=== PATIENT | female | born 1940 | race Caucasian/White ===

== ENCOUNTER 2018-12-21 10:52 | Inpatient (IN) | payer MEDICARE ==
[2018-12-21] MEDS ORDERED: NITROGLYCERIN OINT 1 INCH/GM PACKET TOPICAL STA (11:13)
[2018-12-21] MEDS ORDERED: ASPIRIN 81 MG PO STA ×2 (11:13→11:55)
[2018-12-21] MEDS ORDERED: NITROGLYCERIN-D5W PMX 50 MG in DEXTROSE/WATER 1 250ML.BAG IV ONE (11:54)
[2018-12-21] MEDS ORDERED: NITROGLYCERIN SL TABS 0.4 MG TAB SUBLINGUAL STA (11:54)
--- NOTE | 2018-12-21 11:59 | ED ---
Chest Pain HPI - General Chief Complaint: Chest Pain Stated Complaint: Chest pain Time Seen by Provider: 12/21/18 11:00 Source: patient Mode of arrival: ambulatory Limitations: no limitations - History of Present Illness Initial Comments: Patient is a 78 year old female with past medical history of hypertension who presents to emergency room with reported chest pain. Is located over the left side of her chest with radiation straight through to her back. She did take 2 baby aspirins. It started while she was vacuuming this morning at 8:30 am. She r otated her body and the pain started. Denies any associated shortness of breath or diaphoresis. Does admit to slight numbness in her left upper extremity. Denies any fevers, chills, cough or hemoptysis. No weakness in her extremities. No history of coronary disease. Reports that she has had several EKGs by her primary care physician which have all been normal. She denies ever having stress testing. She recently moved to [place] from [place]. She denies any nausea or vomiting. No history of DVT or PEs. No lower extremity swelling. Denies any unilateral calf pain. No recent upper respiratory infections. No recent illnesses. No other alleviating, precipitating or modifying factors - Related Data Home Medications Medication Instructions Recorded Confirmed Aspirin EC [Ecotrin Low Dose] 81 mg PO DAILY 12/21/18 12/21/18 Vitamin C/Biotin [Hair, Skin and 1 tab PO DAILY 12/21/18 12/21/18 Nails] Previous Rx's Medication Instructions Recorded Apixaban [Eliquis] 2.5 mg PO BID #60 tablet 12/23/18 Atorvastatin [Lipitor] 80 mg PO DAILY #30 tab 12/23/18 Clopidogrel [Plavix] 75 mg PO DAILY #30 tab 12/23/18 Losartan [Cozaar] 50 mg PO DAILY #30 tab 12/23/18 Pantoprazole [Protonix] 40 mg PO DAILY #30 tablet. 12/23/18 Furosemide [Lasix] 20 mg PO DAILY #30 tab 12/25/18 Metoprolol Tartrate [Lopressor] 75 mg PO TID tab 12/25/18 Potassium Chloride ER [K-Dur 20] 20 meq PO DAILY #30 tab.er.prt 12/25/18 Allergies Allergy/AdvReac Type Severity Reaction Status Date / Time Penicillins Allergy Rash/Hives Verified 12/21/18 11:27 Sulfa (Sulfonamide Allergy Anaphylaxis Verified 12/21/18 11:27 Antibiotics) Review of Systems ROS Statement: Those systems with pertinent positive or pertinent negative responses have been documented in the HPI. ROS Other: All systems not noted in ROS Statement are negative. EKG Findings - EKG Comments: EKG Findings:: EKG performed at 1134 demonstrates a ventricular rate of 104. QRS 70. QTC 441. There are PVCs. There is acute ST segment elevation in the inferior leads2, 3, aVF. There is also ST elevation in leads V2 through V6. EKG at 1135 demonstrates a rate of 107. QRS 68. QTC 376. There is acute ST segment elevation again in the inferior leads and anterior lateral leads. EKG at [address] segment elevation in leads 2, 3 and aVF, V2 through V6. A posterior EKG is performed at 1239. It shows an atrial fibrillation with a response of 112. QRS 66. QTC 436. There are acute ST elevations in II, III, aVF, V1 through V3. The posterior leads of V7-V9 show depression Past Medical History Past Medical History: Cancer, Hypertension History of Any Multi-Drug Resistant Organisms: None Reported Past Surgical History: Hysterectomy Past Psychological History: No Psychological Hx Reported Smoking Status: Never smoker Past Alcohol Use History: None Reported Past Drug Use History: None Reported - Past Family History family Additional Family Medical History / Comment(s): No family history of myocardial infarction, cerebrovascular accident, or congestive heart failure General Exam Limitations: no limitations General appearance: alert, in no apparent distress Head exam: Present: atraumatic, normocephalic, normal inspection Eye exam: Present: normal appearance, PERRL, EOMI. Absent: scleral icterus, conjunctival injection, periorbital swelling ENT exam: Present: normal exam, mucous membranes moist Neck exam: Present: normal inspection. Absent: tenderness, meningismus, lymphadenopathy Respiratory exam: Present: normal lung sounds bilaterally. Absent: respiratory distress, wheezes, rales, rhonchi, stridor Cardiovascular Exam: Present: normal rhythm, tachycardia, normal heart sounds. Absent: systolic murmur, diastolic murmur, rubs, gallop, clicks GI/Abdominal exam: Present: soft, normal bowel sounds. Absent: distended, tenderness, guarding, rebound, rigid Extremities exam: Present: normal inspection, full ROM, normal capillary refill. Absent: tenderness, pedal edema, joint swelling, calf tenderness Back exam: Present: normal inspection Neurological exam: Present: alert, oriented X3, CN II-XII intact Psychiatric exam: Present: normal affect, normal mood Skin exam: Present: warm, dry, intact, normal color. Absent: rash Course Vital Signs 12/21/18 12/21/18 12/21/18 10:55 11:34 11:45 Temperature 97.7 F Pulse Rate 117 H Respiratory 20 Rate Blood Pressure 161/111 161/113 O2 Sat by Pulse 98 97 97 Oximetry 12/21/18 12/21/18 12/21/18 12:00 12:15 12:30 Temperature Pulse Rate 114 H 114 H Respiratory 16 16 Rate Blood Pressure 161/113 161/113 146/103 O2 Sat by Pulse 97 97 Oximetry 12/21/18 12/21/18 12:44 12:45 Temperature Pulse Rate 110 H 114 H Respiratory 21 Rate Blood Pressure 110/79 150/96 O2 Sat by Pulse 98 99 Oximetry Chest Pain MDM - MDM Upon arrival the patient was placed into room 4. A thorough history and physical exam was performed. Patient was hooked up to continuous pulse ox and cardiac monitoring. Patient did have peripheral IV established. I did order laboratory studies, an EKG and a chest x-ray. I also ordered 2, 81 mg aspirins and nitro paste. The patient is noted to be hypertensive at this time. EKG was performed at [address] elevations in the inferior and anterior lateral leads. There was no reciprocal changes. Because of the concerning clinical picture and EKG, I did call and discuss the case with Dr. Perez at 11:39. As the patient is complaining of intrascapular back pain with hypertension, he did recommend that the patient be sent for a CT to rule out dissection. I then change the patient's over to a sublingual nitro and ordered a nitro drip. The patient was informed of being immediately sent over for imaging without laboratory studies. She reports no history of kidney disease. The patient did consent to the imaging. Imaging was performed and the patient was started on the nitro drip upon return. I did look at the images myself and see no gross dissection. Because of this I did state that the patient should receive 4, chewable aspirins and a heparin bolus. I called and discussed the case with Dr. Perez once again at [address] was negative from my perspective. He does evaluate the EKG and states that he will cath the patient. I discussed this with the patient and she was agreeable to the procedure. She was transported to the [facility] in stable condition. I reviewed the patient's CT results which were dictated at 1252 which confirmed that the patient had no dissection. I also reviewed the laboratory studies which were resulted after she had gone upstairs. Laboratory studies demonstrated a hemoglobin of 13.5, platelets of 172. D-dimer was 0.38. Troponin was elevated at 0.126. Disposition Clinical Impression: Chest pain, STEMI (ST elevation myocardial infarction) Disposition: ADMITTED IP TO THIS HOSP Condition: Stable Is patient prescribed a controlled substance at d/c from ED?: No
[2018-12-21] MEDS ORDERED: HEPARIN SODIUM,PORCINE 5,000 UNIT/ML 1 ML VIAL IV STA (12:42)
[2018-12-21 12:50] LABS: Basophils % (A) 0 %; Eosinophils % (A) 0 %; HCT 42.2 % (34.0-46.0); HGB 13.5 gm/dL (11.4-16.0); Lymphocytes # (A) 0.6 k/uL (1.0-4.8); Lymphocytes % (A) 8 %; MCH 30.1 pg (25.0-35.0); MCHC 32.1 g/dL (31.0-37.0); MCV 93.7 fL (80.0-100.0); Monocytes # (A) 0.3 k/uL (0-1.0); Monocytes % (A) 3 %; Neutrophils # (A) 6.7 k/uL (1.3-7.7); Neutrophils % (A) 88 %; Platelet Count 172 k/uL (150-450); RDW 14.4 % (11.5-15.5); WBC 7.7 k/uL (3.8-10.6)
--- NOTE | 2018-12-21 12:52 | CT ---
EXAMINATION TYPE: CT angio thor/abd pel aorta DATE OF EXAM: 12/21/2018 COMPARISON: None HISTORY: 78-year-old female Chest pain TECHNIQUE: Contiguous axial scanning of the chest, abdomen, and pelvis performed without and with IV Contrast, patient injected with 100 mL of Isovue 370. Coronal/sagittal MIP reconstructions performed. Reconstructions generated on a dedicated independent workstation. CT DLP: 1120 mGycm Automated exposure control for dose reduction was used. FINDINGS: CHEST: Heart borderline enlarged without pericardial effusion. Coronary vessel calcifications are present. Ectatic ascending aorta 3.5 cm. Conventional arch vessel branching anatomy. Upper descending thoracic aorta normal caliber. Scattered mild prostatic calcifications without. Initial noncontrast images show no evidence for acute intramural hematoma. No evidence for aortic dissection. There is some focal narrowing at the level of the celiac axis origin and mild poststenotic dilatation up to 9 mm. Duplex left renal arteries. Mild atherosclerotic calcifications infrarenal abdominal aorta without aneurysm. No thoracic lymphadenopathy by CT size criteria. There is a large hiatal hernia involving the entire stomach which is located in the left base. There is organoaxial positioning of the stomach and a trace left pleural effusion. Hernia also involves the nonobstructed splenic flexure and begins to involve the body of the pancreas. Volume loss of the left base with focal patchy opacity, likely atelectasis. Density right midlung pulmonary nodule measures 1 cm. Precautionary follow-up recommended. The presen ce of fat density raises the possibility of a benign pulmonary hamartoma. ABDOMEN: Gallbladder measures 3.7 cm wide. Layering calculi in the gallbladder. Arterial phase imaging of the liver, adrenal glands, left kidney, spleen, and pancreas show no gross abnormal body. 1.2 cm hypodense lesion exophytically laterally from the right kidney too small for accurate CT junito cterization, probable cyst. No dilated small bowel, free fluid, or free air. No mesenteric or retroperitoneal lymphadenopathy. Normal appendix. Scattered mild stool. Mild sigmoid diverticulosis. No pericolonic inflammatory guo ge. Pelvis: Bladder urine distended. Uterus surgically absent. Neither ovary clearly visualized. Bones: Osteopenia. Facet arthropathy lower lumbar spine. Advanced degenerative disc disease L2-L3. IMPRESSION: 1. ECTATIC ASCENDING AORTA 3.5 CM. NO EVIDENCE FOR AORTIC ANEURYSM, ACUTE INTRAMURAL HEMATOMA, OR AOR TIC DISSECTION. 2. LARGE HIATAL HERNIA INVOLVING THE ENTIRE STOMACH WHICH FILLS THE LEFT BASE. HERNIA ALSO INVOLVES T HE NONOBSTRUCTED SPLENIC FLEXURE OF THE COLON. 3. ASSOCIATED VOLUME LOSS AND ATELECTASIS AT THE LEFT BASE. 4. A 1 CM RIGHT MIDLUNG PULMONARY NODULE MAY REPRESENT A BENIGN PULMONARY HAMARTOMA. SIX-MONTH FOLLOW -UP CT RECOMMENDED TO REASSESS. 5. CHOLELITHIASIS. MILD SIGMOID DIVERTICULOSIS.
[2018-12-21 12:56] LABS: ALT 69 U/L (9-52); AST 54 U/L (14-36); African American GFR (CKD) >90 (>60 ml/min/1.73 sqM); Albumin 3.3 g/dL (3.5-5.0); Alkaline Phosphatase 93 U/L (38-126); Anion Gap 10 mmol/L; Blood Urea Nitrogen 14 mg/dL (7-17); Calcium 8.4 mg/dL (8.4-10.2); Carbon Dioxide 24 mmol/L (22-30); Chloride 101 mmol/L (98-107); Glucose 133 mg/dL (74-99); Magnesium 1.9 mg/dL (1.6-2.3); Non-African American GFR(CKD) 80 (>60 ml/min/1.73 sqM); Potassium 3.4 mmol/L (3.5-5.1); Sodium 135 mmol/L (137-145); Total Bilirubin 0.9 mg/dL (0.2-1.3); Total Protein 5.6 g/dL (6.3-8.2)
[2018-12-21 12:57] LABS: D-Dimer 0.38 mg/L FEU (<0.60); INR 1.1 (<1.2); Partial Thromboplastin Time 22.4 sec (22.0-30.0); Prothrombin Time 11.7 sec (9.0-12.0)
[2018-12-21] MEDS ORDERED: NALOXONE 0.4 MG/ML 1 ML VIAL IV PRN (13:05)
[2018-12-21] MEDS ORDERED: LIDOCAINE 1% INJ 10MG/ML (20 ML MDV) SQ ONE (13:15)
[2018-12-21] MEDS ORDERED: MIDAZOLAM PF (FBP) 2 MG/2 ML VIAL IV ONE (13:20)
[2018-12-21] MEDS: HYDROmorphone 1 MG/ML 1 ML SYRINGE IVP ONE ×2 (13:20→13:50)
[2018-12-21] MEDS ORDERED: BIVALIRUDIN BOLUS 250 MG/50 ML IV ONE (13:25)
[2018-12-21] MEDS ORDERED: BIVALIRUDIN 250 MG in SODIUM CHLORIDE 0.9% 40 ML IV ONE (13:25)
[2018-12-21] MEDS ORDERED: IV FLUID CONTINUATION 900 ML IV ONE (13:26)
[2018-12-21] MEDS ORDERED: IOPAMIDOL-370 125ML BTL INJ ONE (14:01)
[2018-12-21] MEDS: NITROGLYCERIN 1000MCG/10ML SYRINGE INTRACORON ONE ×2 (14:07→14:21)
[2018-12-21] MEDS ORDERED: CLOPIDOGREL 75 MG TAB PO ONE (14:14)
[2018-12-21] MEDS ORDERED: niCARdipine Syringe (1,000 mcg/10 mL) INTRACORON ONE (14:23)
[2018-12-21 16:42] LABS: Glucose,Whole Blood 138 mg/dL (75-99)
[2018-12-21 16:45] VITALS: BMI 27.1
[2018-12-21] MEDS ORDERED: METOPROLOL TARTRATE 50 MG TAB PO STA (16:56)
[2018-12-21] MEDS ORDERED: ONDANSETRON 4 MG/2 ML VIAL IVP PRN (16:57)
[2018-12-21] MEDS: POTASSIUM CHLORIDE ER 20 MEQ TAB.ER PO SCH (17:28)
[2018-12-21] MEDS: SODIUM CHLORIDE 0.9% 1,000 ML IV SCH (18:07)
[2018-12-21] MEDS ORDERED: ALPRAZolam 0.5 MG TAB PO PRN (18:30)
[2018-12-21] MEDS ORDERED: HYDROcodone/APAP 5-325MG 1 EACH TAB PO PRN (18:30)
[2018-12-21] MEDS ORDERED: ACETAMINOPHEN TAB 325 MG TAB PO PRN (18:30)
--- NOTE | 2018-12-21 18:34 | P.HPIM ---
History of Present Illness H&P Date: 12/21/18 Chief Complaint: chest pain Patient is a 78 yo female with a past medical history of HTN, endometrial cancer in 2008, irregular heart beat, and anxiety who presented to the ED via private vehicle for chest. In the emergency depart she was found to have ST segment elevation on multiple leads. She was also noted to have A fib on 1 ekg. Her troponin was mildly elevated. She went from the ED to the [facility] where 3 stents were placed to the LAD. She was given ASA, plavix, and lipitor. She was admitted to the ICU. Patient seen and examined in the ICU she complains of nausea after her cath. She has also had several twinges of chest pain, but nothing else significant. She reports that this morning she was vacuuming and turned sideways. She then started having chest pain that went through to her back. This was associated with some diaphoresis (which was not unusual for her), and left arm numbness. She denies any shortness of breath, associated nausea, lightheaded or dizziness, or presyncope. She states it lasted 30-45 minutes at home and they decided to drive to the emergency department took approximately 1 hour. She denies any recent cough, cold, fever, flu, nausea, vomiting, or diarrhea. She reports that she saw her PCP in [place] recently and had her atenolol increased was started on Benzapril 5 mg twice daily. She has no history of chest pain in the past. She has no family history of myocardial infarction or history of vascular accident. She has never seen a varnish melter in the past and has no history of prior stress test. She is currently living in [place] but has Medicare. She plans on following up in the [facility]. Review of Systems Pertinent positives and negatives as discussed in HPI, a complete review of systems was performed and all other systems are negative. Past Medical History Past Medical History: Cancer, Hypertension Additional Past Medical History / Comment(s): Stage 3 endometrial carcinoma 2008 with chemo, and hysterectomy History of Any Multi-Drug Resistant Organisms: None Reported Past Surgical History: Hysterectomy Additional Past Surgical History / Comment(s): D&C Past Anesthesia/Blood Transfusion Reactions: No Reported Reaction Past Psychological History: No Psychological Hx Reported Smoking Status: Never smoker Past Alcohol Use History: None Reported Past Drug Use History: None Reported Additional History: Lives with her significant other, no assistive devices - Past Family History family Additional Family Medical History / Comment(s): No family history of myocardial infarction, cerebrovascular accident, or congestive heart failure Medications and Allergies Home Medications Medication Instructions Recorded Confirmed Type Aspirin EC [Ecotrin Low Dose] 81 mg PO DAILY 12/21/18 12/21/18 History Atenolol Unknown Dose 1 tab PO BID 12/21/18 12/21/18 History Benazepril Unknown Dose 1 tab PO BID 12/21/18 12/21/18 History Omeprazole 20 mg PO DAILY 12/21/18 12/21/18 History Vitamin C/Biotin [Hair, Skin and 1 tab PO DAILY 12/21/18 12/21/18 History Nails] Allergies Allergy/AdvReac Type Severity Reaction Status Date / Time Penicillins Allergy Rash/Hives Verified 12/21/18 11:27 Sulfa (Sulfonamide Allergy Anaphylaxis Verified 12/21/18 11:27 Antibiotics) Physical Exam Osteopathic Statement: *. No significant issues noted on an osteopathic structural exam other than those noted in the History and Physical/Consult. Vitals: Vital Signs Temp Pulse Pulse Resp BP BP Pulse Ox 12/21/18 18:00 92 14 120/88 96 12/21/18 17:30 89 11 L 120/88 98 12/21/18 17:00 103 H 12 135/85 97 12/21/18 16:45 89 16 135/85 96 12/21/18 16:30 101 H 10 L 97 12/21/18 16:12 94 16 118/72 96 12/21/18 16:02 94 16 118/72 97 12/21/18 15:32 94 16 115/75 95 12/21/18 15:15 74 16 139/72 95 12/21/18 15:00 92 16 115/75 95 12/21/18 14:45 95 16 121/72 95 12/21/18 12:45 114 H 21 150/96 99 12/21/18 12:44 110 H 110/79 98 12/21/18 12:30 114 H 16 146/103 97 12/21/18 12:15 114 H 16 161/113 97 12/21/18 12:00 161/113 12/21/18 11:45 161/113 97 12/21/18 11:34 97 12/21/18 10:55 97.7 F 117 H 20 161/111 98 Intake and Output 12/21/18 12/21/18 12/21/18 06:59 14:59 22:59 Intake Total 330.45 250 Output Total 400 Balance 330.45 -150 Intake: IV 330 250 0.9 @75 150 Intake, IV Titration 0.45 Amount Nitroglycerin-D5w Pmx 50 0.45 mg In Dextrose/Water 1 250ml.bag @ 5 MCG/MIN 1.5 mls/hr IV .Q24H ONE Rx#: [id number] Output: Urine 400 Other: Voiding Method Bedpan # Voids 1 Weight 63.049 kg General: non toxic, no distress, appears at stated age, normal weight Derm: no unusual rashes/lesions no unusual ecchymoses, warm, dry Head: atraumatic, normocephalic, symmetric Eyes: EOMI, no lid lag, anicteric sclera, pupils equal round reactive to light ENT: Nose and ears atraumatic, no thrush, no pharyngeal erythema Neck: No thyromegaly, no cervical lymphadenopathy, trachea midline, supple Mouth: no lip lesion, mucus membranes moist Cardiovascular: S1S2 reg, no murmur, positive posterior tibial pulse bilateral, no edema, capillary refill less than 2 seconds Lungs: CTA bilateral, no rhonchi, no rales , no accessory muscle use Abdominal: soft, nontender to palpation, no guarding, no appreciable organomegaly, normal bowel sounds Ext: no gross muscle atrophy, muscle strength 5 out of 5 in all 4 extremities grossly, no contractures, Neuro: CN II-XI grossly intact, light touch intact all 4 extremities, finger to nose within normal limits, Psych: Alert, oriented, appropriate affect Results CBC & Chem 7: 12/21/18 12:10 12/21/18 12:10 Labs: Abnormal Lab Results - Last 24 Hours (Table) 12/21/18 12/21/18 12/21/18 Range/Units 12:10 12:10 12:10 Lymphocytes # 0.6 L (1.0-4.8) k/uL Sodium 135 L (137-145) mmol/L Potassium 3.4 L (3.5-5.1) mmol/L Glucose 133 H (74-99) mg/dL POC Glucose (mg/dL) (75-99) mg/dL AST 54 H (14-36) U/L ALT 69 H (9-52) U/L Troponin I 0.126 H* (0.000-0.034) ng/mL Total Protein 5.6 L (6.3-8.2) g/dL Albumin 3.3 L (3.5-5.0) g/dL 12/21/18 Range/Units 16:31 Lymphocytes # (1.0-4.8) k/uL Sodium (137-145) mmol/L Potassium (3.5-5.1) mmol/L Glucose (74-99) mg/dL POC Glucose (mg/dL) 138 H (75-99) mg/dL AST (14-36) U/L ALT (9-52) U/L Troponin I (0.000-0.034) ng/mL Total Protein (6.3-8.2) g/dL Albumin (3.5-5.0) g/dL Comments: CT thoracic aorta-hiatal hernia, ectatic aorta, 1 cm right lung nodule possible benign pulmonary hamartoma, recommend 6 month follow-up, cholelithiasis, mild sigmoid diverticulosis Thrombosis Risk Factor Assmnt - DVT/VTE Prophylaxis DVT/VTE Prophylaxis: Low risk, early ambulation encouraged - Choose All That Apply Any of the Below Risk Factors Present?: Yes Each Factor Represents 1 point: Acute KS, Medical pt on bed rest Other Risk Factors: Yes Each Risk Factor Represents 3 Points: Age 75 years or older Other congenital or acquired thrombophilia - If yes, enter type in comment: No Thrombosis Risk Factor Assessment Total Risk Factor Score: 5 Thrombosis Risk Factor Assessment Level: High Risk Assessment and Plan Assessment: ST segment elevated myocardial infarction status post PCI to the LAD -Aspirin, Plavix, Lipitor, metoprolol -Check cholesterol profile in a.m. -echo in AM - CArdio recs appreciated - Plan to follow-up in [place] HTN, urgency on arrival - metoprolol -Cozaar - follow BP P. A fib - metoprolol, cardizem gtt if remains uncontrolled - if continues will need anticoagulation - tele - cardio recs - check TSH, Mg, k+ in AM Hypokalemia - replace and recheck in AM Anxiety - prn xanax Elevated LFT - out pt follow-up 1 cm Pulm nodule - repeat CT chest in 6 months. The patient is admitted with an anticipated greater than 2 midnight stay for evaluation of STMEI. Surrogate decision-maker: Significant other- Jake CODE STATUS:Full DVT prophylaxis: SCDs Discussed with: Patient, nursing Anticipated discharge date: 48-[address]: home A total of 75 minutes was spent on the care of this complex patient more than 50% of the time was spent in counseling and care coordination.
--- NOTE | 2018-12-21 19:35 | CC ---
CARDIAC CATHETERIZATION REPORT DATE OF SERVICE: 12/21/2018. PROCEDURE: 1. Left heart catheterization and coronary angiography. 2. PTCA and stenting of mid LAD with drug-eluting stents. PERFORMED BY: Dr. Joslyn Perez. SEDATION: Moderate conscious sedation time was 76 minutes. Patient was administered Versed and Dilaudid. Oxygen saturation, hemodynamics and EKG were monitored closely. CLINICAL INFORMATION: Mrs. Griselda Rolon is a 78-year-old lady with a known diagnosis of hypertension, who used to live in [place] and now is moving to [place]. However, she did not establish residence there. Developed chest pain today while she was doing some cleaning and came in with accelerated hypertension and chest pain, mostly in the back actually in the interscapular area. Because of an ST-elevation and a severely elevated blood pressure, she underwent prompt CT angiogram which did not reveal any dissection and then I brought her to the cardiac manager cardiac cath. I evaluated the patient in the lab, explained to her the rationale, risks, benefits, options and proceeded to perform cardiac cath. She had an ST elevation in the anterior leads as well as in the inferior leads. There was some concavity. However, patient was hemodynamically stable. I also spoke to the patient's significant other gentleman. PROCEDURE NOTE: Under local anesthesia and strict aseptic precautions, a 6-Cymraes introducer was placed in the right femoral artery. I performed coronary angiography and noted that the mid LAD was totally occluded and proceeded to perform intervention in the same setting. I used a pigtail catheter to check LV pressures but did not perform an LV-gram. CARDIAC CATHETERIZATION FINDINGS: RIGHT CORONARY ARTERY: Technically a very dominant vessel has about a 40% lesion proximally and distally bifurcates into PDA and PLV. The PDA has a significant lesion of about 70% involving the proximal portion of the PDA just after bifurcation. The PLV is larger, free of significant disease. LEFT MAIN CORONARY ARTERY: This is a short, patent disease-free vessel that bifurcates into LAD and circumflex. There is moderate calcification in the left main. LEFT ANTERIOR DESCENDING CORONARY ARTERY: This vessel is totally occluded in the midportion, but heavily calcified in its entire course, gives off several septal branches. There is a total occlusion. Beyond the occlusion, we can see a line of calcium extending to the apex. There are 2 diagonal branches that come off from the LAD. Proximally, the diagonal branch is free of significant disease. There are diffuse irregularities noted but no significant disease noted in the large 2nd diagonal branch. LEFT POSTERIOR CIRCUMFLEX CORONARY ARTERY: Technically a nondominant vessel that runs laterally, gives off a single obtuse marginal and the left atrial circumflex branch. No significant disease is noted in the circumflex system. Left ventriculogram was not performed. The left ventricle end-diastolic pressure was about 20 mmHg without any gradient across aortic valve. FINAL IMPRESSION: This patient has total occlusion of the LAD, a 70% to 80% proximal portion of the PDA branch of RCA which is a large caliber and good distribution vessel. But the culprit lesion appears to be the LAD. The circumflex has mild irregularities and filling pressures are mildly elevated without any gradient across aortic valve. RECOMMENDATIONS: I recommended PCI of LAD that was performed in the same setting. PCI PROCEDURE DETAILS: I started with a 3.5 left [employer] guide catheter to cannulate the left coronary artery. A run-through wire was used, but I could not cross the lesion. I switched over to a long whisper wire with a cross sail 45 degree angle catheter. With this combination, I was able to cross the lesion. Dr. Lazo helped me in this part of the procedure. The wire was kept distally. I used a 2.25 caliber 12 mm long NC Trek balloon and dilated the total occlusion. I had difficulty bringing the stent in, so I went ahead with a 2.5 x 15 mm NC Trek balloon and dilated the area. I then deployed a 23 mm long 2.5 caliber Xience stent with a good angiographic result. At the distal end of the stent, there was haziness and this was addressed with a 2.25 caliber 8 mm Xience stent with excellent result. Proximal to the stented segment, was another area of concern where there was a septal branch coming off and this area also appeared to be of some concern. This was addressed with 8 mm 3.0 caliber Xience stent with excellent angiographic result. Eventually, patient had a very good angiographic result. The sheath was taken out and Angio-Seal device used to secure hemostasis and she was sent to the room in a stable condition. Results were discussed with the patient as well as her significant other. The delay for PCI was because of patient's presentation with accelerated hypertension and concern for aortic dissection. MMODL / IJN: [id number] /
[2018-12-22 05:39] LABS: Basophils % (A) 1 %; Eosinophils % (A) 0 %; HCT 43.9 % (34.0-46.0); HGB 14.1 gm/dL (11.4-16.0); Lymphocytes # (A) 0.5 k/uL (1.0-4.8); Lymphocytes % (A) 7 %; MCH 30.8 pg (25.0-35.0); MCHC 32.1 g/dL (31.0-37.0); MCV 95.9 fL (80.0-100.0); Mean Platelet Volume 7.2; Monocytes # (A) 0.5 k/uL (0-1.0); Monocytes % (A) 7 %; Neutrophils # (A) 6.3 k/uL (1.3-7.7); Neutrophils % (A) 85 %; Platelet Count 159 k/uL (150-450); RBC 4.58 m/uL (3.80-5.40); RDW 14.7 % (11.5-15.5); WBC 7.4 k/uL (3.8-10.6)
[2018-12-22] MEDS: SODIUM CHLORIDE 0.9% 1,000 ML IV SCH (06:10)
[2018-12-22] MEDS: DILTIAZEM 125 MG in SODIUM CHLORIDE 0.9% 100 ML IV SCH ×2 (06:12→15:52)
[2018-12-22 06:14] LABS: African American GFR (CKD) >90 (>60 ml/min/1.73 sqM); Anion Gap 7 mmol/L; Blood Urea Nitrogen 10 mg/dL (7-17); Calcium 8.6 mg/dL (8.4-10.2); Carbon Dioxide 25 mmol/L (22-30); Chloride 106 mmol/L (98-107); Cholesterol 141 mg/dL (<200); Glucose 109 mg/dL (74-99); HDL Cholesterol 36 mg/dL (40-60); LDL Cholesterol,Calculated 94 mg/dL (0-99); Non-African American GFR(CKD) 85 (>60 ml/min/1.73 sqM); Potassium 4.3 mmol/L (3.5-5.1); Sodium 138 mmol/L (137-145); Triglycerides 56 mg/dL (<150)
--- NOTE | 2018-12-22 08:23 | PN ---
PROGRESS NOTE Mrs. Griselda Rolon presented with acute anterior MO yesterday underwent stenting of mid LAD. She still has a PDA lesion of the RCA. She is, however, in atrial fibrillation and she came in with atrial fibrillation yesterday. She is now on metoprolol. Heart rate is in the low 90s. I am recommending that we add Eliquis 2.5 mg b.i.d., check an additional troponin and increase the metoprolol tartrate to 50 mg in the morning, 25 mg in the evening. Vital signs stable. No JVD. S1, S2 heard normally. Lungs revealed decent air entry. Abdomen and lower extremity exam is unchanged. Plan is to increase activity and move her to telemetry today. MMODL / IJN: [id number] /
[2018-12-22] MEDS: ASPIRIN 81 MG PO SCH (08:29)
[2018-12-22] MEDS: ATORVASTATIN 80 MG TAB PO SCH (08:29)
[2018-12-22] MEDS: CLOPIDOGREL 75 MG TAB PO SCH (08:30)
[2018-12-22] MEDS: APIXABAN 2.5 MG TABLET PO SCH ×2 (08:30→20:40)
[2018-12-22] MEDS: LOSARTAN 50 MG TAB PO SCH (08:31)
[2018-12-22 08:44] LABS: T4, Free (Free Thyroxine) 1.27 ng/dL (0.78-2.19)
[2018-12-22] MEDS ORDERED: METOPROLOL TARTRATE 50 MG TAB PO SCH (09:00)
--- NOTE | 2018-12-22 14:33 | ECHOF ---
Referral Reason:post STEMI MEASUREMENTS -------- HEIGHT: 157.5 cm WEIGHT: 66.7 kg BP: 119/98 RVIDd: 2.8 cm (< 3.3) IVSd: 0.7 cm (0.6 - 1.1) LVIDd: 3.3 cm (3.9 - 5.3) LVPWd: 1.4 cm (0.6 - 1.1) IVSs: 1.2 cm LVIDs: 2.3 cm LVPWs: 1.0 cm LA Diam: 4.5 cm (2.7 - 3.8) LAESV Index (A-L): 34.74 ml/m Ao Diam: 2.9 cm (2.0 - 3.7) AV Cusp: 1.4 cm (1.5 - 2.6) MV EXCURSION: 16.638 mm (> 18.000) MV EF SLOPE: 94 mm/s (70 - 150) EPSS: 0.3 cm MV E Niall: 0.99 m/s MV DecT: 177 ms MV A Niall: 0.18 m/s MV E/A Ratio: 5.52 RAP: 15.00 mmHg RVSP: 55.08 mmHg TAPSE: 18.44 mm FINDINGS -------- Atrial fibrillation. This was a technically good study. The left ventricular size is normal. Left ventricular wall thickness is normal. Overall left vent ricular systolic function is moderately impaired with, an EF between 35 - 40 %. Left ventricular fi llimg pressure cannot be estimated due to Atrial fibrillation. Mid inferior LV wall motion is hypok inetic. Apical anterior LV wall motion is hypokinetic. Apical lateral LV wall motion is hypokin etic. Apical septum LV wall motion is hypokinetic. The right ventricle is normal in size. The left atrium is moderately dilated. LA is moderately dilated 34-39 ml/m2 The right atrial size is normal. There is mild aortic valve sclerosis. There is no evidence of aortic regurgitation. Mild mitral annular calcification present. [id number] mitral regurgitation is present. Moderate to severe tricuspid regurgitation present. There is moderate pulmonary hypertension. The right ventricular systolic pressure, as measured by Doppler, is 55.08mmHg. Trace/mild (physiologic) pulmonic regurgitation. The aortic root size is normal. Echo free space represents a pericardial fat pad. CONCLUSIONS -------- 1. Atrial fibrillation. 2. This was a technically good study. 3. The left ventricular size is normal. 4. Left ventricular wall thickness is normal. 5. Left ventricular fillimg pressure cannot be estimated due to Atrial fibrillation. 6. Mid inferior LV wall motion is hypokinetic. 7. Apical anterior LV wall motion is hypokinetic. 8. Apical lateral LV wall motion is hypokinetic. 9. Apical septum LV wall motion is hypokinetic. 10. The right ventricle is normal in size. 11. The left atrium is moderately dilated. 12. LA is moderately dilated 34-39 ml/m2 13. The right atrial size is normal. 14. There is mild aortic valve sclerosis. 15. Mild mitral annular calcification present. 16. Xols-mp-gspbywly mitral regurgitation is present. 17. Moderate to severe tricuspid regurgitation present. 18. There is moderate pulmonary hypertension. 19. The right ventricular systolic pressure, as measured by Doppler, is 55.08mmHg. 20. Trace/mild (physiologic) pulmonic regurgitation. 21. The aortic root size is normal. 22. Echo free space represents a pericardial fat pad. FIELD HAULER: Diana Blank RDCS
[2018-12-22] MEDS ORDERED: METOPROLOL TARTRATE 25 MG TAB PO SCH ×2 (16:00)
--- NOTE | 2018-12-22 19:48 | P.PN ---
Subjective Progress Note Date: 12/22/18 (delayed charting seen at 1030) Principal diagnosis: chest pain Patient is a 78 yo female with a past medical history of HTN, endometrial cancer in 2008, irregular heart beat, and anxiety who presented to the ED via private vehicle for chest. In the emergency depart she was found to have ST segment elevation on multiple leads. She was also noted to have A fib on 1 ekg. Her troponin was mildly elevated. She went from the ED to the powerhouse laborer where 3 stents were placed to the LAD. She was given ASA, plavix, and lipitor. She was admitted to the ICU. She was found to be in A fib and was started on metoprolol and eliquis. Patient seen and examined at bedside. Nausea is much improved but is still present. She continues to have some intermittent twinging in her chest, no shortness of breath, no diarrhea, no headache today. Social stressors include the fact that she has no prescription coverage in the [place], is currently residing in [place] , but will not be able to access the [employer] system until February. No PCP in the area. Want to see an service associate. Objective - Vital Signs Vital signs: Vital Signs Temp 98.6 F 12/22/18 16:00 Pulse 91 12/22/18 19:00 Resp 12 12/22/18 19:00 BP 107/79 12/22/18 19:00 Pulse Ox 93 L 12/22/18 19:00 Intake & Output 12/22/18 12/22/18 12/23/18 06:59 18:59 06:59 Intake Total 1560 1061 Output Total 1100 1200 Balance 460 -139 Weight 67 kg Intake: IV 900 825 0.9 @75 900 825 Oral 660 236 Output: Urine 1100 1200 Other: Voiding Method Bedpan Bedside Commode # Voids 1 1 - Exam General: non toxic, no distress, appears at younger than stated age Derm: warm, dry Head: atraumatic, normocephalic, symmetric Eyes: EOMI, no lid lag, anicteric sclera Mouth: no lip lesion, mucus membranes moist Cardiovascular: S1S2 irreg, no murmur, positive posterior tibial pulse bilateral, Lungs: CTA bilateral, no rhonchi, no rales , no accessory muscle use Abdominal: soft, nontender to palpation, no guarding, no appreciable organomegaly Ext: no gross muscle atrophy, no edema, no contractures Neuro: CN II-XI grossly intact, no focal neuro deficits Psych: Alert, oriented, appropriate affect - Labs CBC & Chem 7: 12/22/18 04:59 12/22/18 04:59 Labs: Abnormal Lab Results - Last 24 Hours (Table) 12/22/18 12/22/18 12/22/18 Range/Units 04:59 04:59 07:46 Lymphocytes # 0.5 L (1.0-4.8) k/uL Glucose 109 H (74-99) mg/dL Troponin I 17.600 H* (0.000-0.034) ng/mL HDL Cholesterol 36 L (40-60) mg/dL TSH 0.142 L (0.465-4.680) mIU/L Assessment and Plan Assessment: ST segment elevated myocardial infarction status post PCI to the LAD -Aspirin, Plavix, Lipitor, metoprolol - Cholester profile within normal - Cardio recs appreciated - Plan to follow-up in [place] HTN, urgency on arrival now resolved - metoprolol -Cozaar - follow BP P. A fib - metoprolol - started on eliquis - tele - cardio recs - check TSH, Mg, k+ normal 1 cm Pulm nodule - repeat CT chest in 6 months. Hypokalemia, resolved Anxiety - prn xanax Elevated LFT - out pt follow-up Social stressor - no Rx coverage - D/W CM. indigent funds to cover first set of meds. [facility] Good RX card. Samples from cardio for eliquis after the first month. DVT prophylaxis: SCDs Discussed with: Patient, nursing Anticipated discharge date: [address]: home A total of 35 minutes was spent on the care of this complex patient more than 50% of the time was spent in counseling and care coordination.
[2018-12-23 06:31] LABS: Albumin 3.1 g/dL (3.5-5.0); Calcium 8.6 mg/dL (8.4-10.2); Potassium 3.8 mmol/L (3.5-5.1); Total Bilirubin 1.5 mg/dL (0.2-1.3); Total Protein 5.4 g/dL (6.3-8.2)
[2018-12-23] MEDS: ASPIRIN 81 MG PO SCH (08:43)
[2018-12-23] MEDS: ATORVASTATIN 80 MG TAB PO SCH (08:44)
[2018-12-23] MEDS: APIXABAN 2.5 MG TABLET PO SCH ×2 (08:44→19:53)
[2018-12-23] MEDS: CLOPIDOGREL 75 MG TAB PO SCH (08:44)
[2018-12-23] MEDS: METOPROLOL TARTRATE 50 MG TAB PO SCH ×3 (08:44→22:45)
[2018-12-23] MEDS: LOSARTAN 50 MG TAB PO SCH (08:44)
--- NOTE | 2018-12-23 10:38 | PN ---
PROGRESS NOTE Mrs Rolon suffered from an anterior TX, underwent stenting of mid LAD. She also has a lesion in the PDA branch of RCA. Echo revealed ejection fraction of 40%. She is resting comfortably. She also has atrial fib, the rate control is fair. Vital signs are stable. No JVD. S1, S2 heard normally with irregular rate and rhythm. Short systolic murmur. Lungs are clear. Abdomen is soft. Lower extremities reveal normal pulses. No edema. Central nervous system is normal. I am recommending that we increase the Lopressor to 50 mg t.i.d. and gradual increase in activity and move her to telemetry. MMODL / IJN: [id number] /
--- NOTE | 2018-12-23 19:49 | P.PN ---
Subjective Progress Note Date: 12/23/18 (Delayed charting seen at approximately 9:30 AM) Principal diagnosis: chest pain Patient is a 78 yo female with a past medical history of HTN, endometrial cancer in 2008, irregular heart beat, and anxiety who presented to the ED via private vehicle for chest. In the emergency depart she was found to have ST segment elevation on multiple leads. She was also noted to have A fib on 1 ekg. Her troponin was mildly elevated. She went from the ED to the track repair laborer where 3 stents were placed to the LAD. She was given ASA, plavix, and lipitor. She was admitted to the ICU. She was found to be in A fib and was started on metoprolol and eliquis. Echocardiogram revealed an ejection fraction 35-40%. She been started on metoprolol and Cozaar. Her A. fib remain suboptimally rate controlled and her metoprolol was increased. She continued to do well and was asymptomatic after her cath. Patient seen and examined at bedside. No chest pain, shortness breath, nausea, vomiting, or diarrhea. Has been up and walking. Currently applying face makeup. Objective - Vital Signs Vital signs: Vital Signs Temp 98.5 F 12/23/18 16:00 Pulse 109 H 12/23/18 16:00 Resp 22 12/23/18 16:00 BP 119/77 12/23/18 16:00 Pulse Ox 94 L 12/23/18 16:00 Intake & Output 12/23/18 12/23/18 12/24/18 06:59 18:59 06:59 Intake Total 220 600 Output Total 600 Balance -380 600 Weight 65 kg Intake: Oral 220 600 Output: Urine 600 Other: Voiding Method Bedside Commode Toilet # Voids 2 - Exam General: non toxic, no distress, appears at younger than stated age Derm: warm, dry Head: atraumatic, normocephalic, symmetric Eyes: EOMI, no lid lag, anicteric sclera Mouth: no lip lesion, mucus membranes moist Cardiovascular: S1S2 irreg, no murmur, positive posterior tibial pulse bilateral, no edema Lungs: CTA bilateral, no rhonchi, no rales , no accessory muscle use Abdominal: soft, nontender to palpation, no guarding, no appreciable organomegaly Ext: no gross muscle atrophy, no contractures Neuro: CN II-XI grossly intact, no focal neuro deficits Psych: Alert, oriented, appropriate affect - Labs CBC & Chem 7: 12/22/18 04:59 12/23/18 05:21 Labs: Abnormal Lab Results - Last 24 Hours (Table) 12/23/18 Range/Units 05:21 Total Bilirubin 1.5 H (0.2-1.3) mg/dL AST 120 H (14-36) U/L ALT 64 H (9-52) U/L Total Protein 5.4 L (6.3-8.2) g/dL Albumin 3.1 L (3.5-5.0) g/dL Assessment and Plan Assessment: ST segment elevated myocardial infarction status post PCI to the LAD - Aspirin, Plavix, Lipitor, metoprolol - Cholesterol profile within normal - Cardio recs appreciated - Plan to follow-up in [place] Cardiomyopathy, ischemic with EF 35-50% - metoprolol, cozaar - cardio recs - repeat echo in 12 weeks. HTN, urgency on arrival now resolved - metoprolol - Cozaar - follow BP P. A fib - metoprolol - eliquis - tele - cardio recs - check TSH, Mg, k+ normal 1 cm Pulm nodule - repeat CT chest in 6 months. Hypokalemia, resolved Anxiety - prn xanax Elevated LFT - recheck in AM - out pt follow-up Social stressor - no Rx coverage - D/W CM. indigent funds to cover first set of meds- all sent to pharmacy today. Given Good RX card. Samples from cardio for eliquis after the first month. DVT prophylaxis: SCDs Discussed with: Patient, nursing Anticipated discharge date: [address]: home A total of 35 minutes was spent on the care of this complex patient more than 50% of the time was spent in counseling and care coordination.
[2018-12-24 06:11] LABS: Albumin 3.7 g/dL (3.5-5.0); Potassium 3.6 mmol/L (3.5-5.1); Total Bilirubin 1.6 mg/dL (0.2-1.3); Total Protein 6.2 g/dL (6.3-8.2)
[2018-12-24] MEDS: METOPROLOL TARTRATE 50 MG TAB PO SCH (08:23)
[2018-12-24] MEDS: ASPIRIN 81 MG PO SCH (08:23)
[2018-12-24] MEDS: APIXABAN 2.5 MG TABLET PO SCH ×2 (08:23→20:59)
[2018-12-24] MEDS: LOSARTAN 50 MG TAB PO SCH (08:23)
[2018-12-24] MEDS: ATORVASTATIN 80 MG TAB PO SCH (08:23)
[2018-12-24] MEDS: CLOPIDOGREL 75 MG TAB PO SCH (08:23)
[2018-12-24] MEDS ORDERED: METOPROLOL TARTRATE 25 MG TAB PO STA (08:43)
[2018-12-24] MEDS: FUROSEMIDE 20 MG TAB PO SCH (09:07)
[2018-12-24] MEDS: PANTOPRAZOLE 40 MG TABLET PO SCH (09:07)
[2018-12-24] MEDS: POTASSIUM CHLORIDE ER 20 MEQ TAB.ER PO SCH (09:07)
--- NOTE | 2018-12-24 09:17 | P.PN ---
Subjective This is a pleasant 78 showed female status post anterior wall NM and stenting of the mid LAD with ischemic cardiomyopathy, ejection fraction 40%. She also has paroxysmal atrial fibrillation and hypertension. She is seen and examined sitting up in bed in no acute distress. She complains of intermittent vague discomfort in the left axillary region not associated with activity or exertion. She states she can feel her heart beating rapidly however it is not causing her any distress. She denies shortness of breath, dizziness, nausea, vomiting or diaphoresis. Currently maintained on Eliquis 2.5 mg twice a day, aspirin 81 mg daily, Plavix 75 mg daily, metoprolol 50 mg 3 times a day and losartan 50 mg daily. Blood pressure 138/89 heart rate 98 afebrile maintaining oxygen saturation on room air. Laboratory data reviewed, sodium 138, potassium 3.6, creatinine 0.76, AST 91, ALT 60. GENERAL: Well-appearing, well-nourished and in no acute distress. NECK: Supple without JVD or thyromegaly. LUNGS: Breath sounds clear to auscultation bilaterally. Respiration equal and unlabored. No wheezes, rales or rhonchi. HEART: Irregular rate and rhythm with systolic ejection murmur at the left sternal border, no rubs or gallops. S1 and S2 heard. EXTREMITIES: Normal range of motion, no edema. No clubbing or cyanosis. Peripheral pulses intact. ASSESSMENT Acute anterior wall ST elevation myocardial infarction status post angioplasty Paroxysmal atrial fibrillation on long-term anticoagulation with variable rates Hypertension Dyslipidemia Ischemic cardiomyopathy PLAN Increase Lopressor 75 mg 3 times a day. Initiate on a small dose of daily Lasix 20 mg along with potassium supplementation. Recommend to continue to monitor for another 24 hours. Nurse Practitioner note has been reviewed, I agree with a documented findings and plan of care. Patient was seen and examined. Objective - Vital Signs Vital signs: Vital Signs Temp 98 F 12/24/18 08:00 Pulse 98 12/24/18 08:00 Resp 18 12/24/18 08:00 BP 138/89 12/24/18 08:00 Pulse Ox 99 12/24/18 08:00 Intake & Output 12/23/18 12/24/18 12/24/18 18:59 06:59 18:59 Intake Total 600 360 Balance 600 360 Weight 61.5 kg Intake: Oral 600 360 Other: Voiding Method Toilet Toilet # Voids 2 1 # Bowel Movements 1 - Labs CBC & Chem 7: 12/22/18 04:59 12/24/18 05:31 Labs: Abnormal Lab Results - Last 24 Hours (Table) 12/24/18 Range/Units 05:31 Glucose 112 H (74-99) mg/dL Total Bilirubin 1.6 H (0.2-1.3) mg/dL AST 91 H (14-36) U/L ALT 60 H (9-52) U/L Total Protein 6.2 L (6.3-8.2) g/dL
--- NOTE | 2018-12-24 11:32 | P.PN ---
Subjective Progress Note Date: 12/24/18 Principal diagnosis: chest pain Patient is a 78 yo female with a past medical history of HTN, endometrial cancer in 2008, irregular heart beat, and anxiety who presented to the ED via private vehicle for chest. In the emergency depart she was found to have ST segment elevation on multiple leads. She was also noted to have A fib on 1 ekg. Her troponin was mildly elevated. She went from the ED to the wood and wood products labourer where 3 stents were placed to the LAD. She was given ASA, plavix, and lipitor. She was admitted to the ICU. She was found to be in A fib and was started on met oprolol and eliquis. Echocardiogram revealed an ejection fraction 35-40%. She been started on metoprolol and Cozaar. Her A. fib remain suboptimally rate controlled and her metoprolol was increased. She continued to do well and was asymptomatic after her cath. Metoprolol again increased on 12/24 as she was still tachycardiac. She walked 12/24 and had some back pain. Patient seen and examined at bedside. She reports that she got up and walked was having some pain in her shoulder blade that found between her shoulder blades. She states is similar but not as intense pain she came in with. It did not radiate around to her chest. She denies any shortness of breath, nausea, or lightheadedness. Objective - Vital Signs Vital signs: Vital Signs Temp 98 F 12/24/18 08:00 Pulse 98 12/24/18 08:00 Resp 18 12/24/18 08:00 BP 138/89 12/24/18 08:00 Pulse Ox 99 12/24/18 08:00 Intake & Output 12/23/18 12/24/18 12/24/18 18:59 06:59 18:59 Intake Total 600 360 Balance 600 360 Weight 61.5 kg Intake: Oral 600 360 Other: Voiding Method Toilet Toilet # Voids 2 1 # Bowel Movements 1 - Exam General: non toxic, no distress, appears at younger than stated age Derm: warm, dry Head: atraumatic, normocephalic, symmetric Eyes: EOMI, no lid lag, anicteric sclera Mouth: no lip lesion, mucus membranes moist Cardiovascular: S1S2 irreg, no murmur, positive posterior tibial pulse bilateral, no edema Lungs: CTA bilateral, no rhonchi, no rales , no accessory muscle use Abdominal: soft, nontender to palpation, no guarding, no appreciable organomegaly Ext: no gross muscle atrophy, no contractures Neuro: CN II-XI grossly intact, no focal neuro deficits Psych: Alert, oriented, appropriate affect - Labs CBC & Chem 7: 12/22/18 04:59 12/24/18 05:31 Labs: Abnormal Lab Results - Last 24 Hours (Table) 12/24/18 Range/Units 05:31 Glucose 112 H (74-99) mg/dL Total Bilirubin 1.6 H (0.2-1.3) mg/dL AST 91 H (14-36) U/L ALT 60 H (9-52) U/L Total Protein 6.2 L (6.3-8.2) g/dL Assessment and Plan Assessment: ST segment elevated myocardial infarction status post PCI to the LAD - Aspirin, Plavix, Lipitor, metoprolol - Cholesterol profile within normal - Cardio recs appreciated will need follow up for PDA lesion - Plan to follow-up in [place] - Repeat EKG done today for pain in shoulder blades. appears unchanged. Cardiomyopathy, ischemic with EF 35-50% - metoprolol, cozaar - cardio recs - repeat echo in 12 weeks. HTN, urgency on arrival now resolved - metoprolol - Cozaar - follow BP P. A fib - metoprolol increased - eliquis - tele - cardio recs - check TSH, Mg, k+ normal 1 cm Pulm nodule - repeat CT chest in 6 months. Patient aware Hypokalemia, resolved Anxiety - prn xanax Elevated LFT, improving - likely due to hypoperfusion - no idiciation to recek Social stressor - no Rx coverage - D/W CM. indigent funds to cover first set of meds- all sent to pharmacy today. Given Good RX card. Samples from cardio for eliquis after the first month. DVT prophylaxis: SCDs Discussed with: Patient, nursing Anticipated discharge date:in AM Anticipated discharge place: home A total of 35 minutes was spent on the care of this complex patient more than 50% of the time was spent in counseling and care coordination.
[2018-12-24] MEDS: METOPROLOL TARTRATE 25 MG TAB PO SCH ×2 (16:22→22:10)
[2018-12-25] MEDS: PANTOPRAZOLE 40 MG TABLET PO SCH (06:52)
[2018-12-25 08:50] VITALS: BP 126/90; PULSE 87; RESP 18; TEMP 97.6
[2018-12-25] MEDS: POTASSIUM CHLORIDE ER 20 MEQ TAB.ER PO SCH (08:51)
[2018-12-25] MEDS: ASPIRIN 81 MG PO SCH (08:51)
[2018-12-25] MEDS: LOSARTAN 50 MG TAB PO SCH (08:51)
[2018-12-25] MEDS: FUROSEMIDE 20 MG TAB PO SCH (08:51)
[2018-12-25] MEDS: ATORVASTATIN 80 MG TAB PO SCH (08:51)
[2018-12-25] MEDS: METOPROLOL TARTRATE 25 MG TAB PO SCH (08:51)
[2018-12-25] MEDS: APIXABAN 2.5 MG TABLET PO SCH (08:51)
[2018-12-25] MEDS: CLOPIDOGREL 75 MG TAB PO SCH (08:51)
--- NOTE | 2018-12-25 11:46 | P.DS ---
Providers Date of admission: 12/21/18 13:13 Expected date of discharge: 12/25/18 Attending physician: Miguelina Miranda DO Consults: 12/21/18 13:06 Consult Physician Stat Consulting Provider: [facility] Consult Reason/Comments: acute chest pain Do you want consulting provider notified?: Already Contacted Primary care physician: Stated None Hospital Course: Discharge Diagnosis: ST segment elevated myocardial infarction status post PCI to the LAD with 3 drug-eluting stents Cardiomyopathy, ischemic with ejection fraction 35-40% Hypertensive urgency on arrival Paroxysmal atrial fibrillation, newly discovered 1 cm pulmonary nodule Hypokalemia Anxiety Transaminitis secondary to hypoperfusion and improved Social stressor -no prescription coverage currently. Hospital Course: Patient is a 78 yo female with a past medical history of HTN, endometrial cancer in 2008, irregular heart beat, and anxiety who presented to the ED via private vehicle for chest. In the emergency depart she was found to have ST segment elevation on multiple leads. She was also noted to have A fib on 1 ekg. Her troponin was mildly elevated. She went from the ED to the photo lab specialist where 3 stents were placed to the LAD. She was given ASA, plavix, and lipitor. She was admitted to the ICU. She was found to be in A fib and was started on metoprolol and eliquis. Echocardiogram revealed an ejection fraction 35-40%. She been started on metoprolol and Cozaar. Her A. fib remain suboptimally rate controlled and her metoprolol was increased. She continued to do well and was asymptomatic after her cath. Metoprolol again increased on 12/24 as she was still tachycardiac. She walked 12/24 and had some back pain EKG was unchanged. She was doing well and was pain free on 12/25 and was subsequently discharged home. She will follow with Dr. Perez in 1 week. She may need an adidtional stent to the PDA and is aware on the importance of follow-up. She has also found to have 1 cm Pulmonary nodule and will need repeat CT in 6 months. She will follow in the area (now living in [facility] but has medicare). She want to see an medical billing instructor and has been referred to Dr. Wu appt 12/29/ at 11:15 am. Patient seen and examined at bedside. Doing well. Chest pain-free. No nausea. No vomiting. No back pain. Vital signs reviewed and stable. General: non toxic, no distress, appears at stated age Derm: warm, dry Head: atraumatic, normocephalic, symmetric Eyes: EOMI, no lid lag, anicteric sclera Mouth: no lip lesion, mucus membranes moist Cardiovascular: S1S2 reg, no murmur, positive posterior tibial pulse bilateral, Lungs: CTA bilateral, no rhonchi, no rales , no accessory muscle use Abdominal: soft, nontender to palpation, no guarding, no appreciable organomegaly Ext: no gross muscle atrophy, no edema, no contractures Neuro: CN II-XI grossly intact, no focal neuro deficits Psych: Alert, oriented, appropriate affect A total of 35 minutes of time were spent preparing this complex discharge summary . 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 Metoprolol Tartrate [Lopressor] 75 mg PO TID tab Potassium Chloride ER [K-Dur 20] 20 meq PO DAILY #30 tab.er.prt Furosemide [Lasix] 20 mg PO DAILY #30 tab Continue Vitamin C/Biotin [Hair, Skin and Nails] 1 tab PO DAILY Aspirin EC [Ecotrin Low Dose] 81 mg PO DAILY Omeprazole 20 mg PO DAILY #30 cap Discontinued Benazepril Unknown Dose 1 tab PO BID Atenolol Unknown Dose 1 tab PO BID Discharge Medication List Aspirin EC [Ecotrin Low Dose] 81 mg PO DAILY 12/21/18 [History] Vitamin C/Biotin [Hair, Skin and Nails] 1 tab PO DAILY 12/21/18 [History] Apixaban [Eliquis] 2.5 mg PO BID #60 tablet 12/23/18 [Rx] Atorvastatin [Lipitor] 80 mg PO DAILY #30 tab 12/23/18 [Rx] Clopidogrel [Plavix] 75 mg PO DAILY #30 tab 12/23/18 [Rx] Losartan [Cozaar] 50 mg PO DAILY #30 tab 12/23/18 [Rx] Pantoprazole [Protonix] 40 mg PO DAILY #30 tablet.dr 12/23/18 [Rx] Furosemide [Lasix] 20 mg PO DAILY #30 tab 12/25/18 [Rx] Metoprolol Tartrate [Lopressor] 75 mg PO TID tab 12/25/18 [Rx] Omeprazole 20 mg PO DAILY #30 cap 12/25/18 [Rx] Potassium Chloride ER [K-Dur 20] 20 meq PO DAILY #30 tab.er.prt 12/25/18 [Rx] Follow up Appointment(s)/Referral(s): Dallin Perez MD [STAFF PHYSICIAN] - 1 Week ([facility]. Office will call with a follow up appointment.) Charissa Wu MD [STAFF PHYSICIAN] - 12/29/18 11:15 am (Internal Medicine.) Patient Instructions/Handouts: Heart Attack (GEN), A-fib (Atrial Fibrillation) (DC), Heart Healthy Diet (DC), Coronary Angioplasty (DC) Activity/Diet/Wound Care/Special Instructions: Activity: as tolerated Diet: heart healthy Special Instructions: Moderate physical activity at home. Nothing that makes you sweat or raises your heat rate. Don't forget repeat CT chest in 6 months for follow-up on pulmonary nodule PCP Dr Mauricio Luog in [place] can be reached at [phone] Discharge Disposition: HOME SELF-CARE
[2018-12-25] MEDS: MAGNESIUM SULFATE-D5W PMX 1 GM in DEXTROSE/WATER 1 100ML.BAG IVPB SCH ×2 (13:49→14:00)
[2018-12-25] MEDS ORDERED: MAGNESIUM OXIDE 400 MG TAB PO STA (13:49)
--- NOTE | 2018-12-25 14:36 | P.PN ---
Subjective Progress Note Date: 12/25/18 This is a pleasant 78 showed female status post anterior wall WI and stenting of the mid LAD with ischemic cardiomyopathy, ejection fraction 40%. She also has paroxysmal atrial fibrillation and hypertension. She is seen and examined sitting up in bed in no acute distress. She denies any chest discomfort, and her breathing is stable. She should be able to be discharged home today from cardiology's perspective to follow-up with Dr. Santino Perez in the office post discharge. Objective - Vital Signs Vital signs: Vital Signs Temp 97.6 F 12/25/18 08:00 Pulse 87 12/25/18 12:00 Resp 18 12/25/18 08:00 BP 126/90 12/25/18 08:00 Pulse Ox 95 12/25/18 08:00 Intake & Output 12/24/18 12/25/18 12/25/18 18:59 06:59 18:59 Intake Total 600 Output Total 600 2 4 Balance 0 -2 -4 Weight 60.4 kg Intake: Oral 600 Output: Urine 600 Stool 2 4 Other: Voiding Method Toilet Toilet # Voids 1 # Bowel Movements 3 - Exam PHYSICAL EXAMINATION: GENERAL: 78-year-old female in no acute distress at time of my exam ination HEENT: Head is atraumatic, normocephalic. Pupils equal, round. Sclera anicteric. Conjunctiva are clear. Mucous membranes of the mouth are moist. Neck is supple. There is no elevated jugular venous pressure.] bruit is heard. HEART EXAMINATION: Heart S1, S2 normal. No murmur or gallop heard. CHEST EXAMINATION: Lungs are clear to auscultation and precussion. No chest wall tenderness is noted on palpation or with deep breathing. ABDOMEN: Soft, nontender. Bowel sounds are heard. No organomegaly noted. EXTREMITIES: 2+ peripheral pulses with no evidence of peripheral edema and no calf tenderness noted. NEUROLOGIC patient is awake, alert and oriented 3 . . - Labs CBC & Chem 7: 12/22/18 04:59 12/24/18 05:31 Assessment and Plan Plan: ASSESSMENT and plan #[address] elevation myocardial infarction status post angioplasty and stenting of the LAD #2Paroxysmal atrial fibrillation on long-term anticoagulation with variable rates #3 Hypertension #4 Dyslipidemia #5 Ischemic cardiomyopathy Plan Cardiology's perspective, patient may be able to be discharged home today, we'll make a follow-up appointment in the office post discharge. DNP note has been reviewed, I agree with a documented findings and plan of care. Patient was seen and examined.
== END 2018-12-25 14:12 | disposition home or self-care (01) | DRG 247 ==
LOC: EC 10:52 → 2SICU 13:13 → 3SCARD 12-23 15:05
PROVIDERS: ADMIT Internal Medicine; ATTEND Internal Medicine
PROC: 027036Z Dilation of Coronary Artery, One Artery with Three Drug-eluting Intraluminal Devices, Percutaneous Approach (ICD-10-PCS; principal; 2018-12-21 13:10)
PROC: 4A023N7 Measurement of Cardiac Sampling and Pressure, Left Heart, Percutaneous Approach (ICD-10-PCS; principal; 2018-12-21 13:10)
DX: I21.09 ST elevation (STEMI) myocardial infarction involving other coronary artery of anterior wall (principal); E78.5 Hyperlipidemia, unspecified; E87.6 Hypokalemia; F41.9 Anxiety disorder, unspecified; I10 Essential (primary) hypertension; I16.0 Hypertensive urgency; I25.10 Atherosclerotic heart disease of native coronary artery without angina pectoris; I25.5 Ischemic cardiomyopathy; I25.82 Chronic total occlusion of coronary artery; I48.0 Paroxysmal atrial fibrillation; Z79.01 Long term (current) use of anticoagulants; Z79.02 Long term (current) use of antithrombotics/antiplatelets; Z79.82 Long term (current) use of aspirin; Z79.899 Other long term (current) drug therapy; Z85.42 Personal history of malignant neoplasm of other parts of uterus; Z90.710 Acquired absence of both cervix and uterus; Z88.0 Allergy status to penicillin; Z88.2 Allergy status to sulfonamides; R91.1 Solitary pulmonary nodule; R79.89 Other specified abnormal findings of blood chemistry
CPT/HCPCS: 36415; 71275; 74174; 80048; 80053; 80061; 83735; 84132; 84439; 84443; 84484; 85025; 85379; 85610; 85730; 87324; 93005; 93306; 93458; C1874

== ENCOUNTER → 2019-01-12 | Outpatient (CLI) | payer MEDICARE ==
[2019-01-12 16:08] LABS: HCT 44.2 % (34.0-46.0); HGB 15.2 gm/dL (11.4-16.0); MCH 31.2 pg (25.0-35.0); MCHC 34.3 g/dL (31.0-37.0); MCV 91.1 fL (80.0-100.0); Mean Platelet Volume 6.8; Platelet Count 147 k/uL (150-450); RBC 4.85 m/uL (3.80-5.40); RDW 13.5 % (11.5-15.5); WBC 4.5 k/uL (3.8-10.6)
== END ==
LOC: LABPAT 15:11
PROVIDERS: ATTEND Internal Medicine Interventional Cardiology
DX: Z01.812 Encounter for preprocedural laboratory examination (principal); I10 Essential (primary) hypertension; I25.2 Old myocardial infarction
CPT/HCPCS: 36415; 80051; 82565; 82947; 84520; 85027

== ENCOUNTER 2019-01-22 09:06 | Day surgery (SDC) | payer MEDICARE ==
[~2019-01-22 09:06] MED LIST: ALPRAZolam 0.25 MG TAB PO PRN; ALPRAZolam 0.5 MG TAB PO PRN; ASPIRIN 325 MG TAB PO STA; ATORVASTATIN 80 MG TAB PO STA; NITROGLYCERIN SL TABS 0.4 MG TAB SUBLINGUAL PRN; SODIUM CHLORIDE 0.9% 1,000 ML in EMPTY BAG 1 BAG IV ONE
[2019-01-22] MEDS ORDERED: ASPIRIN 81 MG ONE (09:38)
[2019-01-22] MEDS ORDERED: ASPIRIN 81 MG PO ONE (09:42)
[2019-01-22] MEDS ORDERED: MIDAZOLAM 2 MG/2 ML VIAL IV ONE (10:28)
[2019-01-22] MEDS ORDERED: LIDOCAINE 1% INJ 10MG/ML (20 ML MDV) SQ ONE (10:32)
[2019-01-22] MEDS ORDERED: BIVALIRUDIN BOLUS 250 MG/50 ML IV ONE (10:42)
[2019-01-22] MEDS: NITROGLYCERIN 1000MCG/10ML SYRINGE INTRACORON ONE ×4 (10:44→11:19)
[2019-01-22] MEDS ORDERED: BIVALIRUDIN 250 MG in SODIUM CHLORIDE 0.9% 50 ML IV ONE (10:44)
[2019-01-22] MEDS ORDERED: CLOPIDOGREL 75 MG TAB PO ONE (11:02)
[2019-01-22] MEDS ORDERED: IOPAMIDOL-370 100ML BTL INJ ONE (11:07)
[2019-01-22] MEDS ORDERED: ADENOSINE 90 MG in SODIUM CHLORIDE 0.9% 60 ML IVP ONE (11:20)
[2019-01-22] MEDS ORDERED: IOPAMIDOL-370 50ML BTL INJ ONE (11:23)
[2019-01-22] MEDS ORDERED: HYDROmorphone 1 MG/ML 1 ML SYRINGE IVP ONE (11:28)
[2019-01-22] MEDS: SODIUM CHLORIDE 0.9% 1,000 ML IV SCH ×2 (12:00→20:25)
--- NOTE | 2019-01-22 12:14 | PTCA ---
PERCUTANEOUSTRANS CORORONARY ANGIOGRAPHY DATE OF SERVICE: 01/22/2019. PROCEDURE PERFORMED: 1. PTCA and stenting of an 80% stenosis in the PDA branch of the dominant RCA with a drug-eluting stent. 2. Fractional flow reserve assessment of a moderate proximal RCA lesion. FFR was negative at 0.92. 3. Coronary angiography of the LAD to ensure it was patent. ANESTHESIA: Moderate conscious sedation time was 54 minutes. CLINICAL INFORMATION: Mrs. Griselda Rolon is a 78-year-old lady who presents with acute anterior ID on December 21, underwent stenting of a totally occluded mid LAD. At that time, she was found to have a PDA lesion which was to be performed in a staged fashion. She is being brought in today to check patency of LAD and performed stenting of PDA branch of RCA. Proximal RCA also had a moderate lesion. This would be checked by FFR. Risks, benefits, options were explained and patient was brought in for the procedure electively. PROCEDURE NOTE: Under local anesthesia and strict aseptic precautions, a 6-Lithuanian introducer was placed in the right femoral artery. Using a 3.5 left Emory catheter, I performed selective coronary angiography of the left coronary artery and noted that the LAD was widely patent and circumflex had no significant disease. I then turned my attention to the RCA. A standard right Emory guide catheter was used to cannulate the right coronary artery. A whisper wire was used to cross the lesion. A 2.25 caliber 12 mm NC Trek balloon was used to pre-dilate the lesion in the PDA branch of RCA. A 2.5 caliber 12 mm Xience stent was deployed at 11 atmospheres. Patient had chest pain, mild inferior ST elevation. Excellent angiographic result was achieved. I then took this wire out and used a Verrata wire to check the IFR and FFR. I had some difficulty with Verrata wire. Eventually, it was positioned well and the IFR was 0.96 and FFR was performed with adenosine infusion and the FFR was 0.92. This was an unremarkable FFR and therefore no intervention of the proximal RCA was performed. The sheath was taken out and an Angio-Seal device used to secure hemostasis and she was sent to the room in stable condition. ASSESSMENT: From pre PTCA stenosis of 80%, after stenting the PDA branch of RCA, the residual stenosis is 0% with remarkably good angiographic appearance and flow. The proximal RCA lesion was unremarkable by FFR, with FFR coming out at 0.92. The LAD that was stented on December 21 was widely patent. The patient will be discharged tomorrow if she remains stable and dual antiplatelet therapy will be continued. CARLOS ENRIQUE / DIOGON: [id number] /
[2019-01-22] MEDS ORDERED: RX INFO: IV CONTRAST WAS GIVEN 1 EACH MISC MISCELLANE PRN (14:27)
[2019-01-22] MEDS ORDERED: ATROPINE SULFATE 0.1 MG/ML 10ML SYRINGE IV PRN (14:27)
[2019-01-22] MEDS ORDERED: ZOLPIDEM 5 MG TAB PO PRN (14:27)
[2019-01-22] MEDS ORDERED: NITROGLYCERIN SL TABS 0.4 MG TAB SUBLINGUAL PRN (14:27)
[2019-01-22] MEDS ORDERED: MAG HYDROX/AL HYDROX/SIMETH 30 ML CUP PO PRN (14:27)
[2019-01-22] MEDS ORDERED: DIPHENOX-ATROP 2.5-0.025 MG 1 EACH TAB PO PRN (14:27)
[2019-01-22] MEDS: METOPROLOL TARTRATE 25 MG TAB PO SCH ×2 (15:19→22:22)
[2019-01-22] MEDS ORDERED: ACETAMINOPHEN TAB 325 MG TAB PO PRN (15:27)
[2019-01-22] MEDS ORDERED: ATORVASTATIN 80 MG TAB PO SCH (21:00)
[2019-01-23 06:31] LABS: Basophils % (A) 1 %; Eosinophils # (A) 0.1 k/uL (0-0.7); Eosinophils % (A) 3 %; HCT 36.9 % (34.0-46.0); HGB 12.4 gm/dL (11.4-16.0); Lymphocytes # (A) 0.4 k/uL (1.0-4.8); Lymphocytes % (A) 11 %; MCH 31.3 pg (25.0-35.0); MCHC 33.5 g/dL (31.0-37.0); MCV 93.4 fL (80.0-100.0); Mean Platelet Volume 6.4; Monocytes # (A) 0.4 k/uL (0-1.0); Monocytes % (A) 9 %; Neutrophils % (A) 73 %; Platelet Count 132 k/uL (150-450); RBC 3.95 m/uL (3.80-5.40); RDW 13.8 % (11.5-15.5); WBC 4.1 k/uL (3.8-10.6)
[2019-01-23 06:58] LABS: African American GFR (CKD) >90 (>60 ml/min/1.73 sqM); Anion Gap 7 mmol/L; Blood Urea Nitrogen 12 mg/dL (7-17); Calcium 8.3 mg/dL (8.4-10.2); Carbon Dioxide 28 mmol/L (22-30); Chloride 105 mmol/L (98-107); Glucose 111 mg/dL (74-99); Potassium 2.9 mmol/L (3.5-5.1); Sodium 140 mmol/L (137-145)
[2019-01-23] MEDS ORDERED: Potassium Replacement Protocol 1 EACH MISC MISCELLANE PRN (07:26)
[2019-01-23] MEDS ORDERED: PANTOPRAZOLE 40 MG TABLET PO SCH (07:30)
[2019-01-23] MEDS ORDERED: INFLUENZA VACCINE (6 MOS+) 60 MCG/0.5 ML SYRINGE IM ONE (08:13)
[2019-01-23] MEDS: METOPROLOL TARTRATE 25 MG TAB PO SCH (08:17)
[2019-01-23] MEDS: POTASSIUM CHLORIDE ER 20 MEQ TAB.ER PO SCH ×3 (08:17→10:16)
[2019-01-23 08:21] VITALS: BP 112/79; PULSE 94; RESP 20; TEMP 97.8
[2019-01-23] MEDS ORDERED: FUROSEMIDE 20 MG TAB PO SCH (09:00)
[2019-01-23] MEDS ORDERED: APIXABAN 2.5 MG TABLET PO SCH (09:00)
[2019-01-23] MEDS ORDERED: CLOPIDOGREL 75 MG TAB PO SCH (09:00)
[2019-01-23] MEDS ORDERED: LOSARTAN 50 MG TAB PO SCH (09:00)
[2019-01-23] MEDS ORDERED: NON FORMULARY DRUG (Vitamin C/Biotin [Hair, Skin And Nails] 1 TAB) PO SCH (09:00)
[2019-01-23] MEDS ORDERED: ASPIRIN 81 MG PO SCH (09:00)
[2019-01-23 09:47] VITALS: BMI 25.9
--- NOTE | 2019-01-23 11:14 | DS ---
DISCHARGE SUMMARY DATE OF ADMISSION: 01/22/2019 DATE OF DISCHARGE: 01/23/2019 DIAGNOSIS: Post infarction angina. PROCEDURES PERFORMED: 1. Selective coronary angiography of the left anterior descending artery. 2. Fractional flow reserve assessment of right coronary artery. 3. PTCA and stenting with a drug-eluting stent of the PDA branch of right coronary artery. CLINICAL INFORMATION: Mrs. Griselda Rolon presented with acute anterior NC on December 21, 2018 and underwent stenting of a totally occluded mid LAD in the setting of an acute ST-elevation NC. She was found to have significant lesion and a very large dominant RCA in the proximal portion of about 40% to 50% and a PDA branch of 80%. I brought her in electively for PCI. I checked the patency of the LAD which was widely patent with good flow. I performed stenting of the PDA branch with a drug-eluting stent with excellent result. I then checked the FFR of the proximal RCA which was unremarkable at 0.92. The patient's postprocedure course was uneventful. This morning she is asymptomatic. Vital signs are stable. No JVD. S1, S2 heard normally. Short systolic murmur noted. Irregular rate and rhythm noted. Lungs are clear. Abdomen and lower extremity exam is unchanged. This patient has a diagnosis of persistent atrial fibrillation, recent anterior myocardial infarction with post infarction angina and hypertension and hyperlipidemia. She can be discharged on the current medications which include dual antiplatelet therapy as well as Eliquis 2.5 mg b.i.d. and I will switch over to a combination of Eliquis and Plavix as an outpatient in 2 weeks. Discharge instructions regarding activity, diet and medications were given. Her potassium is 2.9 and this will be addressed prior to discharge. EKG and other labs are unremarkable. I will see her in the office on January 29. MMODL / IJN: [id number] /
== END 2019-01-23 10:29 | disposition home or self-care (01) ==
LOC: CATHCVL 09:06 → 3SCARD 13:56 → CATHCVL 01-23 10:29
PROVIDERS: ATTEND Internal Medicine Interventional Cardiology
DX: I25.10 Atherosclerotic heart disease of native coronary artery without angina pectoris (principal); I10 Essential (primary) hypertension; E78.5 Hyperlipidemia, unspecified; E78.00 Pure hypercholesterolemia, unspecified; I48.91 Unspecified atrial fibrillation; I25.2 Old myocardial infarction; Z23 Encounter for immunization; Z83.3 Family history of diabetes mellitus; Z79.01 Long term (current) use of anticoagulants; Z79.02 Long term (current) use of antithrombotics/antiplatelets; Z79.82 Long term (current) use of aspirin; Z79.899 Other long term (current) drug therapy; Z88.0 Allergy status to penicillin; Z88.2 Allergy status to sulfonamides
CPT/HCPCS: 93571; 93454; 80048; 85025; 90686; C9600; C1760; C1769 ×3; C1887; C1725; C1894; C1874; G0008; J2250; J2001; J1170; J0583; J0153; Q9967 ×2

== ENCOUNTER → 2019-01-29 | Outpatient (CLI) | payer MEDICARE ==
[2019-01-29 16:55] LABS: Anion Gap 9.1 mmol/L (4.00-12.00); BUN/Creat Ratio 18.89 Ratio (12.00-20.00); Calcium 8.8 mg/dL (8.7-10.3); Carbon Dioxide 24.9 mmol/L (21.6-31.8); Magnesium 1.7 mg/dL (1.5-2.4); Potassium 3.6 mmol/L (3.5-5.5)
== END | disposition home or self-care (01) ==
LOC: LABWHC1 10:07
PROVIDERS: ATTEND Nurse Practitioner
DX: E87.6 Hypokalemia (principal)
CPT/HCPCS: 36415; 80048; 83735

== ENCOUNTER → 2019-03-01 | Outpatient (CLI) | payer MEDICARE ==
[2019-03-01 11:20] LABS: HCT 42.8 % (34.0-46.0); HGB 13.7 gm/dL (11.4-16.0); MCH 31.3 pg (25.0-35.0); MCV 97.7 fL (80.0-100.0); Macrocytosis Slight; Mean Platelet Volume 7.9; Platelet Count 172 k/uL (150-450); RBC 4.38 m/uL (3.80-5.40); RDW 15.4 % (11.5-15.5); WBC 5.2 k/uL (3.8-10.6)
[2019-03-01 11:31] LABS: Potassium 3.3 mmol/L (3.5-5.1)
== END | disposition home or self-care (01) ==
LOC: LABPAT 10:33
PROVIDERS: ATTEND Internal Medicine Interventional Cardiology
DX: Z01.812 Encounter for preprocedural laboratory examination (principal); I21.09 ST elevation (STEMI) myocardial infarction involving other coronary artery of anterior wall; R06.02 Shortness of breath; I48.0 Paroxysmal atrial fibrillation
CPT/HCPCS: 36415; 80051; 82565; 82947; 84520; 85027

== ENCOUNTER → 2019-03-07 | Outpatient (CLI) | payer MEDICARE ==
[2019-03-07 16:32] LABS: African American GFR (CKD) 63.4 (60.0-200.0); Non-African American GFR(CKD) 54.7 (60.0-200.0); Potassium 4.5 mmol/L (3.5-5.5)
== END | disposition home or self-care (01) ==
LOC: LABWHC1 09:45
PROVIDERS: ATTEND Internal Medicine
DX: I25.10 Atherosclerotic heart disease of native coronary artery without angina pectoris (principal); I10 Essential (primary) hypertension
CPT/HCPCS: 36415; 80048

== ENCOUNTER → 2019-03-10 | Outpatient (CLI) | payer MEDICARE ==
[2019-03-10 10:35] LABS: HCT 43.4 % (34.0-46.0); Hypochromasia Slight; MCH 31.8 pg (25.0-35.0); MCHC 32.3 g/dL (31.0-37.0); MCV 98.5 fL (80.0-100.0); Mean Platelet Volume 7.9; Platelet Count 253 k/uL (150-450); RBC 4.41 m/uL (3.80-5.40); RDW 14.6 % (11.5-15.5); WBC 6.2 k/uL (3.8-10.6)
== END | disposition home or self-care (01) ==
LOC: LABWHC1 09:27
PROVIDERS: ATTEND Internal Medicine Interventional Cardiology
DX: I25.10 Atherosclerotic heart disease of native coronary artery without angina pectoris (principal); I10 Essential (primary) hypertension
CPT/HCPCS: 36415; 85027

== ENCOUNTER → 2019-03-17 | Outpatient (CLI) | payer MEDICARE ==
[2019-03-17 16:36] LABS: Anion Gap 10.7 mmol/L (4.00-12.00); BUN/Creat Ratio 17.78 Ratio (12.00-20.00); Calcium 9.2 mg/dL (8.7-10.3); Carbon Dioxide 24.3 mmol/L (21.6-31.8); Non-African American GFR(CKD) 62.1 (60.0-200.0); Potassium 4.9 mmol/L (3.5-5.5)
== END | disposition home or self-care (01) ==
LOC: LABWHC1 08:36
PROVIDERS: ATTEND Internal Medicine Interventional Cardiology
DX: I48.0 Paroxysmal atrial fibrillation (principal)
CPT/HCPCS: 36415; 80048